=== PATIENT | female | born 1945 | race American Indian/Alaskan Native ===

== ENCOUNTER 2022-01-11 15:46 | Emergency (ER) | payer MEDICARE ==
[2022-01-11] MEDS ORDERED: SODIUM CHLORIDE 0.9% 1000 ML 1,000 ML IV ONE (16:56)
--- NOTE | 2022-01-11 17:04 | Emergency Department Report ---
ED Altered Mental Status HPI - General Chief Complaint: Weakness Stated Complaint: ALTERED MENTAL STATUS Time Seen by Provider: 01/11/22 16:45 Source: patient, EMS Mode of arrival: Stretcher Limitations: No Limitations - History of Present Illness Initial Comments: 76 yo F with h/o DM and HTn brought in by daughter with concern for unusual confusion noticed this afternoon. Pt got up and asked the daughter for the bathroom which is right next to her room. She was not able to make it to the toilet before she has diarrhea. Pt was treated for suspected UTI on Keflex by the PCP last week. No other modifying or associated factors noted. - Related Data Previous Rx's Medication Instructions Recorded Last Taken Type Omeprazole Magnesium [PriLOSEC Otc] 20 mg PO QDAY 30 Days #30 tab NS 01/11/22 Unknown Rx Ondansetron [Zofran Odt] 4 mg PO Q8HR 5 Days #15 tab.rapdis 01/11/22 Unknown Rx NS Allergies Allergy/AdvReac Type Severity Reaction Status Date / Time No Known Allergies Allergy Unverified 01/11/22 16:31 ED Review of Systems ROS: Stated complaint: ALTERED MENTAL STATUS Other details as noted in HPI Comment: All other systems reviewed and negative Gastrointestinal: diarrhea Neurological: weakness, confusion ED Past Medical Hx - Past Medical History Hx Diabetes: Yes Hx Dementia: Yes - Medications Home Medications: Home Medications Medication Instructions Recorded Confirmed Last Taken Type Omeprazole Magnesium [PriLOSEC Otc] 20 mg PO QDAY 30 Days #30 tab NS 01/11/22 Unknown Rx Ondansetron [Zofran Odt] 4 mg PO Q8HR 5 Days #15 tab.elif 01/11/22 Unknown Rx NS ED Physical Exam - General Limitations: No Limitations General appearance: alert, in no apparent distress - Head Head exam: Present: atraumatic, normal inspection - Eye Eye exam: Present: normal appearance Pupils: Present: normal accommodation - ENT ENT exam: Present: normal exam, normal orophraynx, mucous membranes dry - Neck Neck exam: Present: normal inspection, full ROM. Absent: tenderness - Respiratory Respiratory exam: Present: normal lung sounds bilaterally. Absent: respiratory distress, accessory muscle use - Cardiovascular Cardiovascular Exam: Present: regular rate, normal rhythm, normal heart sounds - GI/Abdominal GI/Abdominal exam: Present: soft, normal bowel sounds. Absent: distended, tenderness - Extremities Exam Extremities exam: Present: normal inspection, normal capillary refill. Absent: tenderness, pedal edema, joint swelling - Back Exam Back exam: Absent: tenderness, CVA tenderness (R), CVA tenderness (L) - Neurological Exam Neurological exam: Present: alert, oriented X3 - Psychiatric Psychiatric exam: Present: normal affect, normal mood - Skin Skin exam: Present: warm, normal color ED Course Vital Signs 01/11/22 01/11/22 01/11/22 16:21 16:42 16:45 Temperature 98.8 F Pulse Rate 87 97 H 87 Respiratory 18 14 Rate Blood Pressure 197/91 Blood Pressure 150/80 [Left] O2 Sat by Pulse 98 100 Oximetry 01/11/22 01/11/22 01/11/22 17:01 17:15 17:31 Temperature Pulse Rate 85 87 89 Respiratory 10 L 17 11 L Rate Blood Pressure 197/91 164/88 171/79 Blood Pressure [Left] O2 Sat by Pulse 100 100 100 Oximetry 01/11/22 01/11/22 01/11/22 17:45 18:01 18:15 Temperature Pulse Rate 86 87 85 Respiratory 10 L 16 12 Rate Blood Pressure 171/80 171/80 172/83 Blood Pressure [Left] O2 Sat by Pulse 100 100 100 Oximetry 01/11/22 18:31 Temperature Pulse Rate 81 Respiratory 14 Rate Blood Pressure 158/117 Blood Pressure [Left] O2 Sat by Pulse 100 Oximetry - Lab Data Result diagrams: 01/11/22 17:45 01/11/22 17:45 Lab Results 01/11/22 01/11/22 01/11/22 Range/Units 17:24 17:45 17:45 WBC 5.7 (4.5-11.0) K/mm3 RBC 3.96 (3.65-5.03) M/mm3 Hgb 11.1 (10.1-14.3) gm/dl Hct 33.9 (30.3-42.9) % MCV 86 (79-97) fl MCH 28 (28-32) pg MCHC 33 (30-34) % RDW 14.1 (13.2-15.2) % Plt Count 191 (140-440) K/mm3 Lymph % (Auto) 19.3 (13.4-35.0) % [place] % (Auto) 5.2 (0.0-7.3) % Eos % (Auto) 1.3 (0.0-4.3) % Baso % (Auto) 0.5 (0.0-1.8) % Lymph # (Auto) 1.1 L (1.2-5.4) K/mm3 [place] # (Auto) 0.3 (0.0-0.8) K/mm3 Eos # (Auto) 0.1 (0.0-0.4) K/mm3 Baso # (Auto) 0.0 (0.0-0.1) K/mm3 Seg Neutrophils % 73.7 H (40.0-70.0) % Seg Neutrophils # 4.2 (1.8-7.7) K/mm3 PT 13.2 (12.2-14.9) Sec. INR 0.91 (0.87-1.13) Sodium (137-145) mmol/L Potassium (3.6-5.0) mmol/L Chloride (98-107) mmol/L Carbon Dioxide (22-30) mmol/L Anion Gap mmol/L BUN (7-17) mg/dL Creatinine (0.6-1.2) mg/dL Estimated GFR ml/min BUN/Creatinine Ratio % Glucose (65-100) mg/dL Calcium (8.4-10.2) mg/dL Total Bilirubin (0.1-1.2) mg/dL AST (5-40) units/L ALT (7-56) units/L Alkaline Phosphatase (35-129) units/L Total Creatine Kinase (30-135) units/L Total Protein (6.3-8.2) g/dL Albumin (3.9-5) g/dL Albumin/Globulin Ratio % TSH (0.270-4.200) mlU/mL Free T4 (0.76-1.46) ng/dL Urine Color Yellow (Yellow) Urine Turbidity Clear (Clear) Specific [place] (Man) 1.011 (1.003-1.030) Ur Protein (Man) 1+ (Negative) mg/dL Ur Ketones (Man) Negative (Negative) Ur Nitrite (Man) Negative (Negative) Urine Bilirubin (Man) Negative (Negative) Urine Ictotest Not Reportable Leukocyte Esterase (Man) Negative (Negative) Urine WBC (Auto) < 1.0 (0.0-6.0) /HPF Urine RBC (Auto) < 1.0 (0.0-6.0) /HPF Urine Bacteria (Auto) 2+ (Negative) /HPF Urine RBC (Manual) Negative (Negative) Hyaline Casts 1 /LPF Urine Mucus Few /HPF 01/11/22 01/11/22 Range/Units 17:45 17:45 WBC (4.5-11.0) K/mm3 RBC (3.65-5.03) M/mm3 Hgb (10.1-14.3) gm/dl Hct (30.3-42.9) % MCV (79-97) fl MCH (28-32) pg MCHC (30-34) % RDW (13.2-15.2) % Plt Count (140-440) K/mm3 Lymph % (Auto) (13.4-35.0) % [place] % (Auto) (0.0-7.3) % Eos % (Auto) (0.0-4.3) % Baso % (Auto) (0.0-1.8) % Lymph # (Auto) (1.2-5.4) K/mm3 [place] # (Auto) (0.0-0.8) K/mm3 Eos # (Auto) (0.0-0.4) K/mm3 Baso # (Auto) (0.0-0.1) K/mm3 Seg Neutrophils % (40.0-70.0) % Seg Neutrophils # (1.8-7.7) K/mm3 PT (12.2-14.9) Sec. INR (0.87-1.13) Sodium 143 (137-145) mmol/L Potassium 4.2 (3.6-5.0) mmol/L Chloride 103.5 (98-107) mmol/L Carbon Dioxide 22 (22-30) mmol/L Anion Gap 22 mmol/L BUN 48 H (7-17) mg/dL Creatinine 0.9 (0.6-1.2) mg/dL Estimated GFR > 60 ml/min BUN/Creatinine Ratio 53 % Glucose 317 H (65-100) mg/dL Calcium 9.9 (8.4-10.2) mg/dL Total Bilirubin 0.30 (0.1-1.2) mg/dL AST 16 (5-40) units/L ALT 17 (7-56) units/L Alkaline Phosphatase 85 (35-129) units/L Total Creatine Kinase 42 (30-135) units/L Total Protein 6.9 (6.3-8.2) g/dL Albumin 4.0 (3.9-5) g/dL Albumin/Globulin Ratio 1.4 % TSH 1.960 (0.270-4.200) mlU/mL Free T4 1.13 (0.76-1.46) ng/dL Urine Color (Yellow) Urine Turbidity (Clear) Specific [place] (Man) (1.003-1.030) Ur Protein (Man) (Negative) mg/dL Ur Ketones (Man) (Negative) Ur Nitrite (Man) (Negative) Urine Bilirubin (Man) (Negative) Urine Ictotest Leukocyte Esterase (Man) (Negative) Urine WBC (Auto) (0.0-6.0) /HPF Urine RBC (Auto) (0.0-6.0) /HPF Urine Bacteria (Auto) (Negative) /HPF Urine RBC (Manual) (Negative) Hyaline Casts /LPF Urine Mucus /HPF - Radiology Data FINDINGS: Intracranial: Images degraded by motion. Zavala-white matter differentiation is maintained. Confluent periventricular and centrum semiovale white matter hypoattenuation most consistent with sequela of chronic microvascular disease. Prominent ventricular caliber likely central volume loss. No intracranial hemorrhage. No extra axial collection. No hydrocephalus. No herniation. Sinuses: Paranasal sinuses and mastoid air cells are essentially clear. Orbits: Globes are intact. Calvarium: No acute fracture. IMPRESSION: 1. No acute infarction identified. No hemorrhage. Severe sequela from chronic microvascular disease. - Medical Decision Making Here with AMS changes this is likely as a result of some kind of infection or electrolytes depletion especially with recent history of large diarrhea but can not rule out other differentials such pneumonia, urinary tract infection, myocardial infarction, cerebrovascular accident, seizure/ postictal, liver or kidney failure, or systemic infection that leads to sepsis so in order to rule out the above we will go ahead and order routine labs that includes CBC, CMP, urinalysis, CT scan of the brain, lactic acid, chest x-ray, EKG and troponin. In the meantime we will go ahead and start IV hydration while waiting for the above labs. Labs reviewed and noted unremarkable-- pt reports improvement in symptoms with above zofran-- will d/c home on zofran ODT CT head without any acute findings but chronic noted Critical care attestation.: If time is entered above; I have spent that time in minutes in the direct care of this critically ill patient, excluding procedure time. ED Disposition Clinical Impression: Diarrhea Qualifiers: Diarrhea type: unspecified type Qualified Code(s): R19.7 - Diarrhea, unspecified AMS (altered mental status) Qualifiers: Altered mental status type: unspecified Qualified Code(s): R41.82 - Altered mental status, unspecified Disposition: 01 HOME / SELF CARE / HOMELESS Is pt being admited?: No Does the pt Need Aspirin: No Condition: Stable Instructions: Food Choices to Help Relieve Diarrhea, Adult, Diarrhea, Adult, [id number] Additional Instructions: Please continue to encourage patient to increase her daily fluid to help hydration Please take nausea medication as prescribed Start with bland diet to advance as tolerated Please call and have patient follow-up with her primary doctor in the next 3 to 5 days for progress Please do not hesitate to call or bring patient back to emergency room for reevaluation and treatment if symptoms worsen. Prescriptions: Omeprazole Magnesium [PriLOSEC Otc] 20 mg PO QDAY 30 Days #30 tab NS Ondansetron [Zofran Odt] 4 mg PO Q8HR 5 Days #15 tab.elif ARROYO Referrals: PRIMARY CARE, [Primary Care Provider] - 3-5 Days Time of Disposition: 20:21
[2022-01-11 18:14] LABS: Color,Urine Yellow (Yellow)
[2022-01-11 18:16] LABS: Bacteria,Urine 2+ /HPF (Negative); Hyaline Casts,Urine 1 /LPF; Mucus,Urine FEW /HPF; RBC,Urine < 1.0 /HPF (0.0-6.0); WBC,Urine < 1.0 /HPF (0.0-6.0)
[2022-01-11 18:18] LABS: Basophils % (Auto) 0.5 % (0.0-1.8); Eosinophils # (Auto) 0.1 K/mm3 (0.0-0.4); Eosinophils % (Auto) 1.3 % (0.0-4.3); Hematocrit 33.9 % (30.3-42.9); Hemoglobin 11.1 gm/dl (10.1-14.3); Lymphocytes # (Auto) 1.1 K/mm3 (1.2-5.4); Lymphocytes % (Auto) 19.3 % (13.4-35.0); Mean Corpuscular HGB Conc 33 % (30-34); Mean Corpuscular Volume 86 fl (79-97); Monocytes # (Auto) 0.3 K/mm3 (0.0-0.8); Monocytes % (Auto) 5.2 % (0.0-7.3); Platelet Count 191 K/mm3 (140-440); Red Blood Count 3.96 M/mm3 (3.65-5.03); Red Cell Distribution Width 14.1 % (13.2-15.2)
[2022-01-11 18:27] LABS: INR 0.91 (0.87-1.13)
[2022-01-11 18:36] LABS: Alanine Aminotransferase 17 units/L (7-56); BUN/Creatinine Ratio 53; Blood Urea Nitrogen 48 mg/dL (7-17); Calcium 9.9 mg/dL (8.4-10.2); Hemolysis Index 9
[2022-01-11 18:44] LABS: Free T4 (Free Thyroxine) 1.13 ng/dL (0.76-1.46)
--- NOTE | 2022-01-11 20:12 | Cat Scan Report ---
CT head/brain wo con INDICATION: Weakness. TECHNIQUE: CT head. All CT scans at this location are performed using CT dose reduction for ALARA by means of automated exposure control. COMPARISON: None. FINDINGS: Intracranial: Images degraded by motion. Zavala-white matter differentiation is maintained. Confluent p eriventricular and centrum semiovale white matter hypoattenuation most consistent with sequela of chr onic microvascular disease. Prominent ventricular caliber likely central volume loss. No intracranial hemorrhage. No extra axial collection. No hydrocephalus. No herniation. Sinuses: Paranasal sinuses and mastoid air cells are essentially clear. Orbits: Globes are intact. Calvarium: No acute fracture. IMPRESSION: 1. No acute infarction identified. No hemorrhage. Severe sequela from chronic microvascular disease. Signer Name: Sudhir Cannon MD Signed: 01/11/2022 8:08 PM Workstation Name: [id number]
[2022-01-11 23:16] VITALS: BP 192/91
== END 2022-01-11 23:24 | disposition home or self-care (01) ==
LOC: ED 15:46
DX: R41.82 Altered mental status, unspecified (principal); E11.9 Type 2 diabetes mellitus without complications
CPT/HCPCS: 36415; 70450; 80053; 81001; 82550; 84439; 84443; 85025; 85610; 99284